=== PATIENT | male | born 1970 | race Caucasian/White ===

== ENCOUNTER 2019-07-02 21:13 | Emergency (ER) | payer OTHER ==
[~2019-07-02] VITALS: Ht 175.3 cm; Wt 79.4 kg
== END 2019-07-02 22:16 | disposition home or self-care (01) ==
LOC: ED 21:13
DX: R33.9 Retention of urine, unspecified (principal)
CPT/HCPCS: 51702; 51798; 81001; 99283-25

== ENCOUNTER 2021-02-04 11:29 | Emergency (ER) | payer OTHER ==
[~2021-02-04] VITALS: Ht 175.3 cm; Wt 82.6 kg
[2021-02-04] MEDS ORDERED: PREDNISONE20 MG PO (14:35)
== END 2021-02-04 14:54 | disposition home or self-care (01) ==
LOC: ED 11:29
DX: U07.1 COVID-19 (principal); J45.909 Unspecified asthma, uncomplicated
CPT/HCPCS: 71045; 80053; 85025; 99285-25; J7512; M0243; Q0244